=== PATIENT | male | born 1950 | race Caucasian/White ===

== ENCOUNTER 2021-07-14 07:23 | Day surgery (SDC) | payer MEDICARE, OTHER ==
[2021-07-14] MEDS ORDERED: Lidocaine 1% PF 2 ML SDV INJECT ONE (07:24)
[2021-07-14] MEDS ORDERED: Propofol 200 MG/20 ML SDV IV ONE (07:24)
[2021-07-14] MEDS ORDERED: Lactated Ringers 1,000 ML IV SCH (07:30)
[2021-07-14] MEDS ORDERED: Sodium Chloride 0.9% 10 ML Syringe FLUSH PRN (07:30)
--- NOTE | 2021-07-14 09:00 | PCM.HP.2 ---
H&P History of Present Illness - General Date of Service: 07/14/21 Admit Problem/Dx: Admission Diagnosis/Problem Admission Diagnosis/Problem Colonoscopy Source of Information: Patient, Old Records History Limitations: Reports: No Limitations - History of Present Illness Initial Comments - Free Text/Narative: Here for colonoscopy for Hx Polyps, recent hematochezia, on coumadin - Related Data Allergies/Adverse Reactions: Allergies Allergy/AdvReac Type Severity Reaction Status Date / Time codeine Allergy Hives Verified 08/06/18 20:05 Home Medications: Home Meds Citalopram [Citalopram HBr] 20 mg PO DAILY 09/22/14 [History] Lisinopril 20 mg PO DAILY 09/22/14 [History] Multivitamin [Multi-Vitamin Daily] 1 tab PO DAILY 10/31/14 [History] Metoprolol Succinate [Toprol Xl] 100 mg PO DAILY 12/02/14 [History] Warfarin Sodium [Jantoven] 2.5 mg PO MOFR 12/03/14 [History] Warfarin Sodium [Jantoven] 5 mg PO SUTUWETHSA 12/03/14 [History] Oxybutynin [Oxybutynin ER] 5 mg PO BEDTIME 08/01/18 [History] allopurinoL [Zyloprim] 300 mg PO DAILY 08/01/18 [History] atorvaSTATin [Lipitor] 20 mg PO DAILY 08/01/18 [History] metFORMIN [Glucophage] 500 mg PO DAILY 08/01/18 [History] Aspirin 81 mg PO DAILY 07/13/21 [History] Cyclobenzaprine [Flexeril] 5 - 10 mg PO TID PRN 07/13/21 [History] Furosemide [Lasix] 40 mg PO DAILY 07/13/21 [History] Nitroglycerin [Nitrostat] 0.4 mg SL Q5M PRN 07/13/21 [History] Omeprazole 20 mg PO DAILY 07/13/21 [History] Past Medical History HEENT History: Reports: Cataract, Impaired Vision Cardiovascular History: Reports: Afib, CAD, High Cholesterol, Hypertension, Other (See Below) Other Cardiovascular History: PATENT FORAMEN OVALE Respiratory History: Reports: COPD, PE Gastrointestinal History: Reports: None, Other (See Below) Other Gastrointestinal History: HX OF RECTAL HEMORRHAGE Genitourinary History: Reports: None PHILOSOPHY INSTRUCTOR History: Reports: None Musculoskeletal History: Reports: Arthritis, Fracture, Gout, Osteoarthritis Neurological History: Reports: CVA Psychiatric History: Reports: None Endocrine/Metabolic History: Reports: Diabetes, Type II, Obesity/BMI 30+ Hematologic History: Reports: None, Anticoagulation Therapy Immunologic History: Reports: None Oncologic (Cancer) History: Reports: None Dermatologic History: Reports: None - Past Surgical History Head Surgeries/Procedures: Reports: None HEENT Surgical History: Reports: Cataract Surgery, Laser Surgery Other HEENT Surgeries/Procedures: YAG LASER L EYE Cardiovascular Surgical History: Reports: Coronary Artery Stent Respiratory Surgical History: Reports: None GI Surgical History: Reports: Cholecystectomy, Colonoscopy, Polypectomy Male Surgical History: Reports: None Endocrine Surgical History: Reports: None Neurological Surgical History: Reports: None Musculoskeletal Surgical History: Reports: Joint Replacement, ORIF Oncologic Surgical History: Reports: None Dermatological Surgical History: Reports: None Social & Family History - Family History Family Medical History: No Pertinent Family History - Tobacco Use Tobacco Use Status *Q: Unknown Ever Used Tobacco - Caffeine Use Caffeine Use: Reports: Soda Caffeine Use Comment: Dt Coke 2-3x per week - Recreational Drug Use Recreational Drug Use: No Drug Use in Last 12 Months: No H&P Review of Systems - Review of Systems: Review Of Systems: Comprehensive ROS is negative, except as noted in HPI. Exam - Exam Exam: See Below - Vital Signs Vital Signs: Last Vital Signs Temp 99.2 F 07/14/21 08:10 Pulse 66 07/14/21 08:10 Resp 16 07/14/21 08:10 BP 173/83 H 07/14/21 08:10 Pulse Ox 96 07/14/21 08:10 Weight: 134.3 kg - Exam General: Alert, Oriented Lungs: Clear to Auscultation, Normal Respiratory Effort Cardiovascular: Regular Rate, Regular Rhythm GI/Abdominal Exam: Soft, Non-Tender - Patient Data Lab Results Last 24 hrs: Laboratory Results - last 24 hr 07/14/21 Range/Units 08:34 POC Glucose 108 (80-116) mg/dL Sepsis Event Note - Focused Exam Vital Signs: Vital Signs Temp Pulse Resp BP Pulse Ox 07/14/21 08:10 99.2 F 66 16 173/83 H 96 Problem List Initiated/Reviewed/Updated: Yes Orders Last 24hrs: Active Orders 24 hr Category Date Time Status Patient Status [ADT] Routine ADT 07/14/21 07:30 Active Blood Glucose Check, Bedside [RC] ONETIME Care 07/14/21 07:30 Active Patient to Empty Bladder [RC] ASDIRECTED Care 07/14/21 07:30 Active Verify Patient Consent Obtain [RC] ASDIRECTED Care 07/14/21 07:30 Active Nothing Per Oral Diet [DIET] Diet 07/14/21 Breakfast Ordered Lactated Ringers [Ringers, Lactated] 1,000 ml Med 07/14/21 07:30 Active IV ASDIRECTED Sodium Chloride 0.9% [Saline Flush] Med 07/14/21 07:30 Active 10 ml FLUSH ASDIRECTED PRN Peripheral IV Insertion Adult [OM.PC] Routine Oth 07/14/21 07:30 Ordered Resuscitation Status Routine Resus Stat 07/13/21 13:33 Ordered Medication Orders Lactated Ringer's (Ringers, Lactated) 1,000 mls @ 125 mls/hr IV ASDIRECTED NEO Last Admin: 07/14/21 08:40 Dose: 125 mls/hr Documented by: ROLA Sodium Chloride (Sodium Chloride 0.9% 10 Ml Syringe) 10 ml FLUSH ASDIRECTED PRN PRN Reason: Keep Vein Open Assessment/Plan Comment:: Hx Colon Polyps; hematochezia Ok to proceed; risks and complications reviewed, consent obtained
--- NOTE | 2021-07-14 09:17 | PCM.OPNOTE ---
- General Post-Op/Procedure Note Date of Surgery/Procedure: 07/14/21 Operative Procedure(s): Colonoscopy with polypectomy Findings: sig polyp Pre Op Diagnosis: Hx Colon Polyp, recent hematochezia Post-Op Diagnosis: Same Anesthesia Technique: MAC Primary Surgeon: Zia Boo Complications: None Condition: Good
[2021-07-14 09:51] VITALS: BP 134/71; PULSE 71
--- NOTE | 2021-07-15 07:37 | OR ---
DATE OF OPERATION: 07/14/2021 SURGEON: Zia Boo MD PREOPERATIVE DIAGNOSES: 1. History of colon polyps. 2. Recent hematochezia. POSTOPERATIVE DIAGNOSIS: Sigmoid colon polyp. PROCEDURE: Colonoscopy with polypectomy. ANESTHESIA: IV sedation. PROCEDURE IN DETAIL: The patient was brought to the procedure room where he was placed on his left side and IV sedation administered. Digital rectal exam was performed which was normal. The colonoscope was inserted and advanced to the level of the cecum without difficulty. Cecal position was confirmed by identifying the appendiceal lumen and ileocecal valve. The prep was good and surfaces were well-visualized. Upon withdrawing the scope, the ascending, transverse, and descending colon were normal in appearance. In the distal sigmoid colon at 20 cm was a 6 mm sessile polyp removed with the hot biopsy forceps and sent for pathology review. The rectum was normal and retroflexion was normal. No source of recent bleeding was identified. Air was removed and the scope withdrawn. The patient tolerated the procedure well and returned to recovery in stable condition. The patient will be contacted with the pathology report when it returns. If the polyp is adenomatous, he should consider a colonoscopy again in 5 years. If polyp is hyperplastic, no further colon screenings are necessary due to his age. /[id number] ULISSES/MANN
== END 2021-07-14 10:11 | disposition home or self-care (01) ==
LOC: FB.SDS 07:23
PROVIDERS: ATTEND Surgery
DX: K63.5 Polyp of colon (principal); I48.91 Unspecified atrial fibrillation; I25.10 Atherosclerotic heart disease of native coronary artery without angina pectoris; E78.00 Pure hypercholesterolemia, unspecified; I10 Essential (primary) hypertension; J44.9 Chronic obstructive pulmonary disease, unspecified; E11.9 Type 2 diabetes mellitus without complications; E66.9 Obesity, unspecified; Z98.890 Other specified postprocedural states; Z88.5 Allergy status to narcotic agent; Z79.899 Other long term (current) drug therapy; Z79.82 Long term (current) use of aspirin; Z79.84 Long term (current) use of oral hypoglycemic drugs; Z68.36 Body mass index [BMI] 36.0-36.9, adult
CPT/HCPCS: 00811-QZ; 82947; 88305; J2704; J7120

== ENCOUNTER 2022-04-04 19:23 | Emergency (ER) | payer MEDICARE, OTHER ==
[2022-04-04] MEDS ORDERED: Amoxicillin/Clavulanate K 500-125 MG Tab PO ONE (19:24)
[2022-04-04] MEDS ORDERED: Albuterol 8 GM Inhaler INH ONE (19:24)
[2022-04-04] MEDS ORDERED: predniSONE 20 MG Tab PO ONE (19:24)
[2022-04-04 20:07] LABS: ESTIMATED GFR 49 mL/min (>60)
[2022-04-04] MEDS: Albuterol/Ipratropium 3.0-0.5 MG/3 ML Neb Soln NEB ONE (21:29)
[2022-04-04] MEDS: methylPREDNISolone Sodium Succinate 125 MG/2 ML SDV IM ONE (21:29)
[2022-04-04 22:57] VITALS: BP 148/84; PULSE 70
== END 2022-04-04 22:00 | disposition home or self-care (01) ==
LOC: FB.ED 19:23
DX: J44.1 Chronic obstructive pulmonary disease with (acute) exacerbation (principal); R00.2 Palpitations; R79.1 Abnormal coagulation profile; I48.91 Unspecified atrial fibrillation; I10 Essential (primary) hypertension; E11.9 Type 2 diabetes mellitus without complications; M19.90 Unspecified osteoarthritis, unspecified site; E78.00 Pure hypercholesterolemia, unspecified; I25.10 Atherosclerotic heart disease of native coronary artery without angina pectoris; E66.9 Obesity, unspecified; Z68.36 Body mass index [BMI] 36.0-36.9, adult; Z88.5 Allergy status to narcotic agent; Z79.82 Long term (current) use of aspirin; Z79.899 Other long term (current) drug therapy
CPT/HCPCS: 36415; 71045; 80053; 81001; 83880; 84484; 85025; 85610; 93005; 94640; 96372; 99285; A9270; J2930; J7512; J7620

== ENCOUNTER 2022-04-05 10:54 | Emergency (ER) | payer MEDICARE, OTHER ==
[2022-04-05 12:05] VITALS: BP 158/90; PULSE 89
== END 2022-04-05 11:30 | disposition home or self-care (01) ==
LOC: FB.ED 10:54
DX: S91.204A Unspecified open wound of right lesser toe(s) with damage to nail, initial encounter (principal); J44.9 Chronic obstructive pulmonary disease, unspecified; N40.0 Benign prostatic hyperplasia without lower urinary tract symptoms; E11.40 Type 2 diabetes mellitus with diabetic neuropathy, unspecified; M10.9 Gout, unspecified; E66.9 Obesity, unspecified; Z86.73 Personal history of transient ischemic attack (TIA), and cerebral infarction without residual deficits; Z88.5 Allergy status to narcotic agent; Z79.899 Other long term (current) drug therapy; Z79.82 Long term (current) use of aspirin; Z79.84 Long term (current) use of oral hypoglycemic drugs; Z79.01 Long term (current) use of anticoagulants; Z68.36 Body mass index [BMI] 36.0-36.9, adult
CPT/HCPCS: 99281; 99283

== ENCOUNTER 2022-05-12 14:58 | Inpatient (IN) | payer MEDICARE, OTHER ==
[2022-05-12] MEDS ORDERED: Sodium Chloride 0.9% 10 ML Syringe FLUSH PRN (15:38)
[2022-05-12] MEDS ORDERED: Ondansetron 4 MG/2 ML SDV IV PRN (15:38)
[2022-05-12] MEDS ORDERED: Phytonadione 10 MG in Sodium Chloride 0.9% 50 ML IV ONE (16:30)
[2022-05-12] MEDS ORDERED: Acetaminophen 500 MG Tab PO PRN (16:45)
[2022-05-12] MEDS ORDERED: Nitroglycerin 0.4 MG Tab.SL SL PRN (16:45)
[2022-05-12] MEDS: Pantoprazole 40 MG Vial IV SCH (16:51)
[2022-05-12] MEDS: Sodium Chloride 0.9% 250 ML IV SCH ×2 (18:00→21:00)
[2022-05-12] MEDS: Tamsulosin 0.4 MG Cap.ER PO SCH (21:57)
[2022-05-13] MEDS ORDERED: diphenhydrAMINE 25 MG Cap PO ONE (00:37)
[2022-05-13] MEDS: Lactated Ringers 1,000 ML IV SCH ×2 (04:00→17:20)
[2022-05-13 05:43] LABS: ESTIMATED GFR 53 mL/min (>60)
[2022-05-13] MEDS ORDERED: Propofol 200 MG/20 ML SDV IV ONE (10:40)
[2022-05-13] MEDS ORDERED: Lidocaine 2% 100 MG/5 ML Syringe IVPUSH ONE (10:40)
[2022-05-13] MEDS ORDERED: Lactated Ringers 1,000 ML IV ONE (10:40)
[2022-05-13] MEDS: Cholecalciferol (Vitamin D3) 25 MCG Tab PO SCH (10:54)
[2022-05-13] MEDS: Iron Polysaccharides Complex 150 MG Cap PO SCH (10:54)
[2022-05-13] MEDS: Cetirizine 10 MG Tab PO SCH (10:55)
[2022-05-13] MEDS: Finasteride 5 MG Tab PO SCH (10:55)
[2022-05-13] MEDS: Allopurinol 300 MG Tab PO SCH (10:55)
[2022-05-13] MEDS: metFORMIN 500 MG Tab PO SCH (10:56)
[2022-05-13] MEDS: Lisinopril 20 MG Tab PO SCH (10:56)
[2022-05-13] MEDS: Metoprolol Succinate 100 MG Tab.ER PO SCH (10:56)
[2022-05-13] MEDS: Multivitamins with Iron/Calcium/Folic Acid/Minerals Tab PO SCH (10:57)
[2022-05-13] MEDS: Citalopram 20 MG Tab PO SCH (10:57)
[2022-05-13] MEDS: atorvaSTATin 20 MG Tab PO SCH (10:57)
[2022-05-13] MEDS ORDERED: Bisacodyl 5 MG Tab PO ONE ×2 (14:00→16:00)
[2022-05-13] MEDS ORDERED: Polyethylene Glycol 3350 Powder 238 GM Bot PO ONE (14:00)
[2022-05-13] MEDS: Pantoprazole 40 MG Vial IV SCH (16:28)
[2022-05-13] MEDS: Tamsulosin 0.4 MG Cap.ER PO SCH (21:06)
[2022-05-14] MEDS: Lactated Ringers 1,000 ML IV SCH ×2 (00:45→09:15)
[2022-05-14] MEDS ORDERED: Lidocaine 1% PF 2 ML SDV INJECT ONE (10:40)
[2022-05-14] MEDS ORDERED: Propofol 200 MG/20 ML SDV IV ONE (10:40)
[2022-05-14] MEDS: Cholecalciferol (Vitamin D3) 25 MCG Tab PO SCH (11:36)
[2022-05-14] MEDS: Cetirizine 10 MG Tab PO SCH (11:36)
[2022-05-14] MEDS: Citalopram 20 MG Tab PO SCH (11:36)
[2022-05-14] MEDS: Multivitamins with Iron/Calcium/Folic Acid/Minerals Tab PO SCH (11:36)
[2022-05-14] MEDS: Metoprolol Succinate 100 MG Tab.ER PO SCH (11:37)
[2022-05-14] MEDS: Lisinopril 20 MG Tab PO SCH (11:37)
[2022-05-14] MEDS: Finasteride 5 MG Tab PO SCH (11:38)
[2022-05-14] MEDS: atorvaSTATin 20 MG Tab PO SCH (11:38)
[2022-05-14] MEDS: Allopurinol 300 MG Tab PO SCH (11:39)
[2022-05-14] MEDS: Iron Polysaccharides Complex 150 MG Cap PO SCH (11:39)
[2022-05-14 11:40] VITALS: BP 111/63; PULSE 68
[2022-05-14] MEDS: metFORMIN 500 MG Tab PO SCH (11:47)
== END 2022-05-14 14:00 | disposition home or self-care (01) | DRG 813 ==
LOC: FB.MS 15:10
PROVIDERS: ADMIT Family Medicine; ATTEND Family Medicine
PROC: 0DJ08ZZ Inspection of Upper Intestinal Tract, Via Natural or Artificial Opening Endoscopic (ICD-10-PCS; 2022-05-13)
PROC: 30233K1 Transfusion of Nonautologous Frozen Plasma into Peripheral Vein, Percutaneous Approach (ICD-10-PCS; 2022-05-13)
PROC: 0DJD8ZZ Inspection of Lower Intestinal Tract, Via Natural or Artificial Opening Endoscopic (ICD-10-PCS; principal; 2022-05-14)
DX: D68.32 Hemorrhagic disorder due to extrinsic circulating anticoagulants (principal); K92.1 Melena; Z51.5 Encounter for palliative care; I10 Essential (primary) hypertension; I48.91 Unspecified atrial fibrillation; E78.00 Pure hypercholesterolemia, unspecified; I25.10 Atherosclerotic heart disease of native coronary artery without angina pectoris; N40.0 Benign prostatic hyperplasia without lower urinary tract symptoms; E11.42 Type 2 diabetes mellitus with diabetic polyneuropathy; Z96.651 Presence of right artificial knee joint; T45.515A Adverse effect of anticoagulants, initial encounter; D50.0 Iron deficiency anemia secondary to blood loss (chronic); M19.90 Unspecified osteoarthritis, unspecified site; Z86.73 Personal history of transient ischemic attack (TIA), and cerebral infarction without residual deficits; Z79.84 Long term (current) use of oral hypoglycemic drugs; Z79.82 Long term (current) use of aspirin; Z79.01 Long term (current) use of anticoagulants; Z95.5 Presence of coronary angioplasty implant and graft; Z87.891 Personal history of nicotine dependence; Z90.49 Acquired absence of other specified parts of digestive tract
CPT/HCPCS: 00731-QZ; 00811-QZ; 36415; 36430; 80053; 82272; 82947; 85014; 85018; 85025; 85610; 86850; 86900; 86901; 86920; 86922; 99222; 99232; 99239; A9270-GY; C9113; J2704; J3430; J3490; J7050; J7120; P9017

== ENCOUNTER 2022-07-14 10:44 | Emergency (ER) | payer MEDICARE, OTHER ==
[2022-07-14] MEDS ORDERED: Meclizine 25 MG Tab PO ONE (11:00)
[2022-07-14] MEDS ORDERED: Sodium Chloride 0.9% 1,000 ML IV SCH ×2 (11:00→11:30)
[2022-07-14 11:27] LABS: ESTIMATED GFR 45 mL/min (>60)
[2022-07-14 11:42] VITALS: BP 117/47; PULSE 65
== END 2022-07-14 19:40 | disposition home or self-care (01) ==
LOC: FB.ED 10:44
DX: D64.9 Anemia, unspecified (principal); J44.9 Chronic obstructive pulmonary disease, unspecified; I25.10 Atherosclerotic heart disease of native coronary artery without angina pectoris; E78.00 Pure hypercholesterolemia, unspecified; I10 Essential (primary) hypertension; E11.9 Type 2 diabetes mellitus without complications; E66.9 Obesity, unspecified; Z68.34 Body mass index [BMI] 34.0-34.9, adult; Z88.5 Allergy status to narcotic agent; Z79.899 Other long term (current) drug therapy; Z79.82 Long term (current) use of aspirin; Z79.84 Long term (current) use of oral hypoglycemic drugs; Z79.01 Long term (current) use of anticoagulants; Z90.49 Acquired absence of other specified parts of digestive tract
CPT/HCPCS: 36415; 36430; 80053; 84484; 85014; 85018; 85025; 86850; 86900; 86901; 86920; 86922; 93005; 96360; 99285; A9270; J7030; P9016

== ENCOUNTER 2022-09-03 02:55 | Emergency (ER) | payer MEDICARE, OTHER ==
[2022-09-03 03:36] LABS: ESTIMATED GFR 58 mL/min (>60)
[2022-09-03] MEDS ORDERED: Phytonadione 5 MG Tab PO ONE ×2 (04:07→04:10)
[2022-09-03 05:18] VITALS: PULSE 50
[2022-09-03 06:05] VITALS: BP 181/89
== END 2022-09-03 07:58 | disposition home or self-care (01) ==
LOC: FB.ED 02:55
DX: J18.9 Pneumonia, unspecified organism (principal); I48.91 Unspecified atrial fibrillation; I25.10 Atherosclerotic heart disease of native coronary artery without angina pectoris; E78.00 Pure hypercholesterolemia, unspecified; I10 Essential (primary) hypertension; J44.9 Chronic obstructive pulmonary disease, unspecified; M10.9 Gout, unspecified; E11.40 Type 2 diabetes mellitus with diabetic neuropathy, unspecified; E66.9 Obesity, unspecified; Z68.35 Body mass index [BMI] 35.0-35.9, adult; Z86.711 Personal history of pulmonary embolism; Z79.01 Long term (current) use of anticoagulants; Z88.5 Allergy status to narcotic agent; Z79.84 Long term (current) use of oral hypoglycemic drugs; Z79.899 Other long term (current) drug therapy
CPT/HCPCS: 36415; 71046; 80053; 83880; 84484; 85025; 85610; 93005; 99285; A9270

== ENCOUNTER 2022-09-14 10:46 | Emergency (ER) | payer MEDICARE, OTHER ==
[2022-09-14 20:16] VITALS: BP 139/72; PULSE 64
[2022-09-16 08:15] LABS: IRON BIND.CAP.(TIBC) 312 ug/dL (250-450); IRON SATURATION 8 % (15-55); IRON, SERUM 24 ug/dL (38-169); UIBC 288 ug/dL (111-343)
== END 2022-09-14 12:52 | disposition home or self-care (01) ==
LOC: FB.ED 10:46
DX: D50.8 Other iron deficiency anemias (principal); E78.00 Pure hypercholesterolemia, unspecified; I10 Essential (primary) hypertension; J44.9 Chronic obstructive pulmonary disease, unspecified; E11.9 Type 2 diabetes mellitus without complications; Z79.899 Other long term (current) drug therapy
CPT/HCPCS: 36415; 83540; 83550; 85025; 99284

== ENCOUNTER 2022-09-17 23:21 | Emergency (ER) | payer MEDICARE, OTHER ==
[2022-09-17] MEDS ORDERED: Alum Hydroxide/Mag Hydroxide 15 ML, Lidocaine 2% 15 ML PO ONE ×2 (23:33)
[2022-09-17 23:38] VITALS: BP 163/85; PULSE 68
[2022-09-17 23:48] LABS: ESTIMATED GFR 58 mL/min (>60)
== END 2022-09-18 02:48 | disposition home or self-care (01) ==
LOC: FB.ED 23:21
DX: K21.9 Gastro-esophageal reflux disease without esophagitis (principal); D50.8 Other iron deficiency anemias; I25.10 Atherosclerotic heart disease of native coronary artery without angina pectoris; J44.9 Chronic obstructive pulmonary disease, unspecified; E11.40 Type 2 diabetes mellitus with diabetic neuropathy, unspecified; I10 Essential (primary) hypertension; E78.00 Pure hypercholesterolemia, unspecified; E66.9 Obesity, unspecified; Z68.34 Body mass index [BMI] 34.0-34.9, adult; Z88.5 Allergy status to narcotic agent; Z79.899 Other long term (current) drug therapy; Z79.84 Long term (current) use of oral hypoglycemic drugs; Z79.01 Long term (current) use of anticoagulants; Z90.49 Acquired absence of other specified parts of digestive tract; Z87.891 Personal history of nicotine dependence
CPT/HCPCS: 36415; 80053; 83880; 84484; 85025; 93005; 99285; A9270-GY

== ENCOUNTER 2023-05-20 14:28 | Emergency (ER) | payer MEDICARE, OTHER ==
[2023-05-20 16:09] VITALS: BP 153/66; PULSE 65
== END 2023-05-20 15:56 | disposition home or self-care (01) ==
LOC: FB.ED 14:28
DX: S91.115A Laceration without foreign body of left lesser toe(s) without damage to nail, initial encounter (principal); I48.91 Unspecified atrial fibrillation; I25.10 Atherosclerotic heart disease of native coronary artery without angina pectoris; I10 Essential (primary) hypertension; E78.00 Pure hypercholesterolemia, unspecified; J44.9 Chronic obstructive pulmonary disease, unspecified; E11.40 Type 2 diabetes mellitus with diabetic neuropathy, unspecified; E66.9 Obesity, unspecified; Z88.5 Allergy status to narcotic agent; Z79.84 Long term (current) use of oral hypoglycemic drugs; Z79.01 Long term (current) use of anticoagulants; Z79.899 Other long term (current) drug therapy; W26.8XXA Contact with other sharp object(s), not elsewhere classified, initial encounter
CPT/HCPCS: 12001; 99283

== ENCOUNTER 2025-03-07 11:15 | Emergency (ER) | payer MEDICARE, OTHER ==
[2025-03-07 11:23] VITALS: BP 126/65; PULSE 67
[2025-03-07 11:56] LABS: BASOPHILS ABSOLUTE AUTO 0.1 x10-3/uL (0.0-0.3); BASOPHILS PERCENT AUTO 0.5 % (0.3-3.8); EOSINOPHILS PERCENT AUTO 0.4 % (0.1-6.8); HEMATOCRIT 42.2 % (38.3-50.1); HEMOGLOBIN 14.1 g/dL (12.9-17.7); MEAN CORPUSCULAR HEMOGLOBIN 28.3 pg (27.0-33.3); MEAN CORPUSCULAR HGB CONC 33.5 g/dL (28.7-35.3); MEAN CORPUSCULAR VOLUME 84.6 fL (80.8-98.7); MEAN PLATELET VOLUME 8.5 fL (6.7-11.0); MONOCYTES ABSOLUTE AUTO 0.6 x10-3/uL (0.0-1.2); MONOCYTES PERCENT AUTO 5.5 % (5.5-15.2); NEUTROPHILS ABSOLUTE AUTO 8.5 x10-3/uL (1.7-6.9); NEUTROPHILS PERCENT AUTO 83.6 % (40.3-71.8); PLATELET COUNT,PLT 228 x10(3)uL (117-477); RED BLOOD CELL COUNT 4.99 x10(6)uL (3.90-5.90); RED CELL DISTRIBUTION WIDTH 14.6 % (12.4-15.0); WHITE BLOOD CELL COUNT,WBC 10.2 x10-3/uL (3.2-10.1)
[2025-03-07 11:57] LABS: BLOOD UREA NITROGEN,BUN 11 mg/dL (7-18); BUN/CREATININE RATIO 7.3 (9-20); CALCIUM 8.5 mg/dL (8.6-10.2); CARBON DIOXIDE,CO2 29 mmol/L (21-32); CHLORIDE,CL 105 mmol/L (100-110); CREATININE 1.5 mg/dL (0.70-1.30); EST CRCL DRUG DOSING (CG) 52.24 mL/min; ESTIMATED GFR 48 mL/min (>60); GLUCOSE RANDOM 120 mg/dL (80-116); POTASSIUM,K 3.5 mmol/L (3.5-5.3); SODIUM,NA 140 mmol/L (135-145)
[2025-03-07 12:08] LABS: A/G RATIO 0.9; ALANINE AMINOTRANSFERASE,ALT 14 U/L (12-36); ALBUMIN 3.3 g/dL (3.2-4.6); ALKALINE PHOSPHATASE 74 IU/L (56-112); ASPARTATE AMNIOTRANSFERASE,AST 21 IU/L (5-25); BILIRUBIN TOTAL 1.7 mg/dL (0.1-1.3)
== END 2025-03-07 12:48 | disposition home or self-care (01) ==
LOC: FB.ED 11:15
DX: R07.9 Chest pain, unspecified (principal); I48.91 Unspecified atrial fibrillation; I25.10 Atherosclerotic heart disease of native coronary artery without angina pectoris; I10 Essential (primary) hypertension; J44.9 Chronic obstructive pulmonary disease, unspecified; E78.00 Pure hypercholesterolemia, unspecified; M19.90 Unspecified osteoarthritis, unspecified site; E11.42 Type 2 diabetes mellitus with diabetic polyneuropathy; Z90.49 Acquired absence of other specified parts of digestive tract; Z88.5 Allergy status to narcotic agent; Z79.84 Long term (current) use of oral hypoglycemic drugs; Z79.01 Long term (current) use of anticoagulants; Z79.51 Long term (current) use of inhaled steroids; Z79.82 Long term (current) use of aspirin; Z79.899 Other long term (current) drug therapy
CPT/HCPCS: 36415; 71045; 80053; 83880; 84484; 85025; 85730; 93005; 99285